=== PATIENT | female | born 1945 | race Two or more races ===

== ENCOUNTER 2017-05-28 16:35 | Observation (INO) | payer OTHER ==
--- NOTE | 2017-05-28 17:10 | PDOC ---
Rapid Medical Evaluation Time Seen by Provider: 05/28/17 17:10 Medical Evaluation: Allergies Allergy/AdvReac Type Severity Reaction Status Date / Time No Known Allergies Allergy Verified 12/16/15 18:55 05/28/17 17:10 I have performed a brief in-person evaluation of this patient. The patient presents with a chief complaint of: HENSLEY and body aches w/ subj fever Pertinent physical exam findings:Mildly tachy w/ elevated BP w/ temp of 99, chest/lungs clear otherwise I have ordered the following:labs/flu/CXR The patient will proceed to the ED for further evaluation. 05/28/17 17:14
[2017-05-28] MEDS ORDERED: ACETAMINOPHEN 500 MG TABLET (FP) PO ONE (17:17)
[2017-05-28] MEDS ORDERED: SODIUM CHLORIDE 0.9% 1000 ML INFUS.BAG IV ONE (17:17)
--- NOTE | 2017-05-28 17:19 | PDOC ---
History of Present Illness - History of Present Illness Initial Comments: 05/28/17 18:05 <IraiskayyNiki - Last Filed: 05/28/17 18:09> - History of Present Illness Initial Comments: 72 year old female with PMH of HTN and HLD presenting with fevers, chills, myalgias, and cough for the past 1.5 days. She does not admit to direct sick contacts but she states she comes across a lot of sick people on public transportation. States that her myalgias are primarily in her legs and arms and she hasn't taken anything for her fever or pain. Her cough is non-productive and does not wake her out of bed. She was not able to measure her fever at home. Does admit to decreased appetite but does not have fevers, chills, nausea vomiting, diarrhea, constipation, chest pain, SOB, wheezing, syncope, or other sick signs. 05/28/17 18:26 <Ita Munguia - Last Filed: 05/28/17 20:47> - General Chief Complaint: Weakness Stated Complaint: FATIGUE/PAIN Time Seen by Provider: 05/28/17 17:10 Past History <Niki Ferro - Last Filed: 05/28/17 18:09> - Past Medical History COPD: No HTN: Yes - Suicide/Smoking/Psychosocial Hx Smoking History: Never smoked Have you smoked in the past 12 months: No Information on smoking cessation initiated: No Hx Alcohol Use: No Drug/Substance Use Hx: No Substance Use Type: None <Ita Munguia - Last Filed: 05/28/17 20:47> - Past Medical History Allergies/Adverse Reactions: Allergies Allergy/AdvReac Type Severity Reaction Status Date / Time No Known Allergies Allergy Verified 05/28/17 17:15 Home Medications: Ambulatory Orders Carvedilol [Coreg -] 25 mg PO DAILY 12/16/15 Nifedipine ER [Procardia Xl -] 30 mg PO DAILY 12/16/15 Olmesartan/Hydrochlorothiazide [Benicar Hct 40-25 mg Tablet] 1 each PO DAILY 12/23 Rosuvastatin Calcium [Crestor] 5 mg PO DAILY 12/16/15 *Physical Exam - Vital Signs Last Vital Signs Temp Pulse Resp BP Pulse Ox 99.8 F H 81 23 153/128 97 05/28/17 17:12 05/28/17 17:12 05/28/17 17:12 05/28/17 17:12 05/28/17 17:12 <Niki Ferro - Last Filed: 05/28/17 18:09> - Vital Signs Last Vital Signs Temp Pulse Resp BP Pulse Ox 99.8 F H 81 23 153/128 97 05/28/17 17:12 05/28/17 17:12 05/28/17 17:12 05/28/17 17:12 05/28/17 17:12 <Ita Munguia - Last Filed: 05/28/17 20:47> ED Treatment Course - ADDITIONAL ORDERS Additional order review: 05/28/17 17:10 Influenza Types A,B Antigen (ILIANA) - Final Nasopharyngeal Swab - Final <Niki Ferro - Last Filed: 05/28/17 18:09> - LABORATORY CBC & Chemistry Diagram: 05/28/17 17:50 05/28/17 17:50 <Ita Munguia - Last Filed: 05/28/17 20:47> Medical Decision Making - Medical Decision Making 72 year old female with PMH of HTN and HLD presenting with fevers, chills, myalgias, and cough for the past 1.5 days. Influenza A was positive and other labs returned relatively normal but patient had EKG findings consistent with new onset Afib. Original call was placed to Dr. Foote but patent was actually a patient of Dr. Rangel's and he would like an overnight tele obs admission. Will defer AC to admitting team but patient has no contraindications from our standpoint and has a [id number] risk percentage of 3.3%. Patient admitted to [facility]. Given oseltamavir 75, 1G tylenol IV and admission order placed. 05/28/17 20:40 <Ita Munguia - Last Filed: 05/28/17 20:47> *DC/Admit/Observation/Transfer <Niki Ferro - Last Filed: 05/28/17 18:09> - Discharge Dispostion Admit: Yes <Ita Munguia - Last Filed: 05/28/17 20:47> Diagnosis at time of Disposition: New onset a-fib, Influenza A - Discharge Dispostion Condition at time of disposition: Improved
[2017-05-28] MEDS ORDERED: ACETAMINOPHEN INJECTION 100 ML IVPB ONE (17:56)
[2017-05-28 18:16] LABS: VENOUS PH 7.39 (7.32-7.42)
[2017-05-28 18:17] LABS: VENOUS PO2 41.7 mmHg (28-48)
[2017-05-28 18:27] LABS: BASO % 0.6 % (0-2.0); EOS % 0.1 % (0-4.5); HEMATOCRIT 30.3 % (32.4-45.2); LYMPH % 15.9 % (8-40); MCH 30.1 pg (25.7-33.7); MEAN CELL VOLUME 91.2 fl (80-96); MEAN PLT VOLUME 9.3 fl (7.5-11.1); MONO % 9.8 % (3.8-10.2); NEUT % 73.6 % (42.8-82.8); PLATELET COUNT 156 K/MM3 (134-434); RBC 3.33 M/mm3 (3.60-5.2); RDW 12.9 % (11.6-15.6); WHITE BLOOD COUNT 4.5 K/mm3 (4.0-10.0)
--- NOTE | 2017-05-28 18:47 | PDOC ---
Attending Attestation - HPI HPI: 05/28/17 18:47 The patient is a 72 year old female with past medical history of hypertension and hyperlipidemia who presents to the ED with complaints of flu like symptoms for the past day and half. The patient complains of fevers, chills, body aches, headache and nasal congestion. She reports not taking anything for her fever or symptoms. She denies receiving her flu vaccine this year. She denies any nausea , vomiting, diarrhea, shortness of breath, chest pain, or urinary symptoms. - Physicial Exam PE: 05/28/17 18:47 General Appearance: no acute distress, well nourished well developed, Head: Atraumatic, normocephalic Nose: Nares patent bilaterally;no nasal congestion Throat: Posterior oropharynx without erythema, mucous membranes moist, Neck: Supple;No Nuchal rigidity Cardiac: Regular rate and rhythm, no murmurs, no rubs, no gallops, Lungs: Clear to auscultation bilateral, good air movement bilaterally, Abdomen: Soft, nondistended, normal bowel sounds, nontender to palpation Extremities: Full range of motion to all extremities, no cyanosis, clubbing, or edema Skin: Warm and dry, no rashes or lesions, no petechiae - Medical Decision Making 05/28/17 18:49 Documentation prepared by Niki Ferro, acting as medical laboratory scientist for Lele Baptiste MD. <Niki Ferro - Last Filed: 05/28/17 18:47> - Resident Resident Name: Ita Munguia - ED Attending Attestation I have performed the following: I have examined & evaluated the patient, The case was reviewed & discussed with the resident, I agree w/resident's findings & plan, Exceptions are as noted - Medical Decision Making 05/28/17 20:26 Influenza positive. EKG demonstrates new onset A. fib rate controlled no ST elevations or T-wave inversions Case discussed with patient's primary doctor or body recommends admission with telemetry Full dose aspirin given Norm vasc 2 score = 3 We'll admit to medicine for further management. <Lele Baptiste - Last Filed: 05/28/17 20:26>
[2017-05-28 18:51] LABS: INR 1.19 (0.82-1.09); PROTHROMBIN TIME (PATIENT) 13.5 SEC (9.98-11.88)
[2017-05-28 18:54] LABS: ACTIVATED PTT 34.8 SECONDS (26.9-34.4)
[2017-05-28 18:54] LABS: ALBUMIN 3.5 g/dl (3.4-5.0); ANION GAP 6 (8-16); BILIRUBIN,TOTAL 0.7 mg/dL (0.2-1.0); BLOOD UREA NITROGEN 22 mg/dL (7-18); CALCIUM 8.3 mg/dL (8.5-10.1); CHLORIDE 103 mmol/L (98-107); CO2 27 mmol/L (21-32); CREATININE 0.8 mg/dL (0.55-1.02); GLUCOSE,RANDOM 117 mg/dL (74-106); POTASSIUM 3.8 mmol/L (3.5-5.1); SGOT/AST 80 U/L (15-37); SGPT/ALT 103 U/L (12-78); SODIUM 136 mmol/L (136-145); TOT PROT 7.3 g/dl (6.4-8.2)
[2017-05-28 18:55] LABS: ALK PHOS 68 U/L (45-117)
[2017-05-28] MEDS ORDERED: OSELTAMIVIR PHOSPHATE 75 MG CAPSULE PO ONE (19:02)
[2017-05-28] MEDS ORDERED: OSELTAMIVIR PHOSPHATE 75 MG CAPSULE ONE (19:27)
--- NOTE | 2017-05-28 19:43 | HP ---
Admitting History and Physical - Primary Care Physician PCP: Helder Rangel - Admission Chief Complaint: Flu-like symptoms History of Present Illness: This is a 72 y/o woman with a past medical history of ALS, HTN. Who presents to the ED with flu like symptoms and a productive cough-yellow phlegm x 2 days. Patient reports having generalized bodyaches, chills, with decreased appetite. Patient reports being vaccinated for Influenza this season. She denies recent sick contacts. Patient denies SOB, CP, palpitations, AP, N/V/D, constipation, dysuria. History Source: Patient, Medical Record Limitations to Obtaining History: No Limitations - Past Medical History Cardiovascular: Yes: HTN, Hyperlipdemia - Smoking History Smoking history: Never smoked Have you smoked in the past 12 months: No - Alcohol/Substance Use Hx Alcohol Use: No History of Substance Use: reports: None - Social History ADL: Independent History of Recent Travel: No Home Medications - Allergies Allergies/Adverse Reactions: Allergies Allergy/AdvReac Type Severity Reaction Status Date / Time No Known Allergies Allergy Verified 05/28/17 17:15 - Home Medications Home Medications: Ambulatory Orders Carvedilol [Coreg -] 25 mg PO DAILY 12/16/15 Nifedipine ER [Procardia Xl -] 30 mg PO DAILY 12/16/15 Olmesartan/Hydrochlorothiazide [Benicar Hct 40-25 mg Tablet] 1 each PO DAILY 12/23 Rosuvastatin Calcium [Crestor] 5 mg PO DAILY 12/16/15 Acetaminophen [Tylenol] 650 mg PO PRN 05/29/17 Family Disease History - Family Disease History Family History: Unable to Obtain Review of Systems - Review of Systems Constitutional: reports: Chills, Fever Eyes: reports: No Symptoms HENT: reports: Nasal Congestion Respiratory: reports: Cough Gastrointestinal: reports: No Symptoms Genitourinary: reports: No Symptoms Breasts: reports: No Symptoms Reported Integumentary: reports: No Symptoms Neurological: reports: No Symptoms Endocrine: reports: No Symptoms Hematology/Lymphatic: reports: No Symptoms Psychiatric: reports: No Symptoms Physical Examination Vital Signs: Vital Signs Temperature 99.8 F H 05/28/17 17:12 Pulse Rate 81 05/28/17 17:12 Respiratory Rate 23 05/28/17 17:12 Blood Pressure 153/128 05/28/17 17:12 O2 Sat by Pulse Oximetry (%) 97 05/28/17 17:12 Constitutional: Yes: Well Nourished Eyes: Yes: WNL, Conjunctiva Clear, EOM Intact, PERRL HENT: Yes: WNL, Atraumatic, Normocephalic, Nasal Congestion Neck: Yes: WNL, Supple, Trachea Midline Cardiovascular: Yes: Pulse Irregular, S1, S2 Respiratory: Yes: WNL, Rhonchi (scattered) Gastrointestinal: Yes: Normal Bowel Sounds, Soft, Abdomen, Obese ...Rectal Exam: Yes: Deferred Renal/: Yes: WNL Breast(s): Yes: WNL Musculoskeletal: Yes: Back Pain, Muscle Pain Extremities: Yes: WNL Edema: Yes Edema: LLE: Trace, RLE: Trace Peripheral Pulses WNL: Yes Integumentary: Yes: WNL Neurological: Yes: WNL, Alert, Oriented, Cran Nerves II-XII Intact ...Motor Strength: WNL Psychiatric: Yes: WNL, Alert, Oriented Labs: CBC, BMP 05/28/17 17:50 05/28/17 17:50 Laboratory Results - last 24 hr 05/28/17 05/28/17 05/28/17 17:50 17:50 18:05 WBC 4.5 RBC 3.33 L Hgb 10.0 L Hct 30.3 L MCV 91.2 MCH 30.1 MCHC 33.0 RDW 12.9 Plt Count 156 D MPV 9.3 Neutrophils % 73.6 Lymphocytes % 15.9 Monocytes % 9.8 Eosinophils % 0.1 Basophils % 0.6 PT with INR 13.50 H INR 1.19 H PTT (Actin FS) 34.8 H VBG pH POC VBG pCO2 POC VBG pO2 Mixed VBG HCO3 Sodium 136 Potassium 3.8 Chloride 103 Carbon Dioxide 27 Anion Gap 6 L BUN 22 H Creatinine 0.8 Creat Clearance w eGFR > 60 Random Glucose 117 H Lactic Acid Calcium 8.3 L Total Bilirubin 0.7 AST 80 H ALT 103 H Alkaline Phosphatase 68 Creatine Kinase Troponin I Total Protein 7.3 Albumin 3.5 05/28/17 05/28/17 05/28/17 18:05 18:05 18:05 WBC RBC Hgb Hct MCV MCH MCHC RDW Plt Count MPV Neutrophils % Lymphocytes % Monocytes % Eosinophils % Basophils % PT with INR INR PTT (Actin FS) VBG pH 7.39 POC VBG pCO2 45.0 POC VBG pO2 41.7 Mixed VBG HCO3 26.5 H Sodium Potassium Chloride Carbon Dioxide Anion Gap BUN Creatinine Creat Clearance w eGFR Random Glucose Lactic Acid 1.0 Calcium Total Bilirubin AST ALT Alkaline Phosphatase Creatine Kinase 136 Troponin I 0.02 Total Protein Albumin Imaging - Results Chest X-ray: Pending EKG: Image Reviewed (Afib 84bpm rate controlled QT/QTc 372/439) Problem List - Problems (1) Influenza A Code(s): J10.1 - FLU DUE TO OTH IDENT INFLUENZA VIRUS W OTH RESP MANIFEST (2) New onset a-fib Code(s): I48.91 - UNSPECIFIED ATRIAL FIBRILLATION (3) HTN (hypertension) Code(s): I10 - ESSENTIAL (PRIMARY) HYPERTENSION Qualifiers: Hypertension type: essential hypertension Qualified Code(s): I10 - Essential (primary) hypertension (4) HLD (hyperlipidemia) Code(s): E78.5 - HYPERLIPIDEMIA, UNSPECIFIED Qualifiers: Hyperlipidemia type: pure hypercholesterolemia Qualified Code(s): E78.00 - Pure hypercholesterolemia, unspecified; E78.0 - Pure hypercholesterolemia (5) DVT prophylaxis Code(s): AVE3610 - Assessment/Plan This is a 72 y/o woman with a PMHx of: HTN, HLD. Placed on Tele Observation for New Onset Afib, Influenza A for further evaluation of their emergent condition. Plan: Cardiology: 1. New Onset Afib- cardiac monitoring, [id number] Score 3, Appreciate Cardiology Consult, Serial Enzymes negx1, will trend x2, EKG- Afib rate controlled, patient is currently asymptomatic. Will start Eliquis 5mg BID 2. HTN- continue home meds, monitor BP, monitor renal function 3. HLD- continue home med, monitor LFTs ID: 1. Influenza A- Isolation Precautions- droplet, blood cultures-pending, urine culture pending, continue Tamiflu, monitor vitals, repeat CBC, BMP in am, Tylenol, continue supportive care F/E/N PO fluids as tolerated Replete lytes prn Low Na, Low Cholesterol Diet DVT Prophylaxis OOB SCDs Code Status: Full Code Dispo: Tele Observation Visit type - Emergency Visit Emergency Visit: Yes ED Registration Date: 05/28/17 Care time: The patient presented to the Emergency Department on the above date and was hospitalized for further evaluation of their emergent condition. - New Patient This patient is new to me today: Yes Date on this admission: 05/28/17 - Critical Care Critical Care patient: No
--- NOTE | 2017-05-28 21:19 | CON.CARD ---
Consult Consult Specialty:: Cardiology Referred by:: Emergency Dept Reason for Consultation:: Newly diagnosed atrial fibrillation - History of Present Illness Chief Complaint: Flu History of Present Illness: The patient is a 72 year old female with past medical history of hypertension and hyperlipidemia presented to the ED with complaints of flu like symptoms for the past day and half. The patient complains of fevers, chills, body aches, headache and nasal congestion. She reports not taking anything for her fever or symptoms. She denies receiving her flu vaccine this year. She denies shortness of breath, chest pain, palpitations, near or true syncope, orthopnea, PND. Found to be in rate-controlled afib, +Influenza A Ag. - History Source History Provided By: Patient Limitations to Obtaining History: No Limitations - Past Medical History Cardio/Vascular: Yes: HTN, Hyperlipdemia - Alcohol/Substance Use Hx Alcohol Use: No History of Substance Use: reports: None - Smoking History Smoking history: Never smoked Have you smoked in the past 12 months: No - Social History History of Recent Travel: No Home Medications - Allergies Allergies/Adverse Reactions: Allergies Allergy/AdvReac Type Severity Reaction Status Date / Time No Known Allergies Allergy Verified 05/28/17 17:15 - Home Medications Home Medications: Ambulatory Orders Carvedilol [Coreg -] 25 mg PO DAILY 12/16/15 Nifedipine ER [Procardia Xl -] 30 mg PO DAILY 12/16/15 Olmesartan/Hydrochlorothiazide [Benicar Hct 40-25 mg Tablet] 1 each PO DAILY 12/23 Rosuvastatin Calcium [Crestor] 5 mg PO DAILY 12/16/15 Acetaminophen [Tylenol] 650 mg PO PRN 05/29/17 Review of Systems - Review of Systems Constitutional: reports: Chills Musculoskeletal: reports: Muscle Pain Vital Signs: Vital Signs Temperature 98.9 F 05/28/17 19:54 Pulse Rate 81 05/28/17 19:54 Respiratory Rate 18 05/28/17 19:54 Blood Pressure 163/82 05/28/17 19:54 O2 Sat by Pulse Oximetry (%) 96 05/28/17 19:54 Constitutional: Yes: No Distress, Calm Neck: Yes: Supple Respiratory: Yes: Regular, Diminished Gastrointestinal: Yes: Normal Bowel Sounds, Soft, Abdomen, Obese Cardiovascular: Yes: Pulse Irregular JVD: No Carotid Bruit: No Heart Sounds: Yes: S1, S2 Murmur: Yes: Systolic Murmur, Grade 1 Edema: No - Other Data Labs, Other Data: CBC, BMP 05/28/17 17:50 05/28/17 17:50 INR, PTT INR 1.19 (0.82-1.09) H 05/28/17 18:05 Troponin, BNP 05/28/17 18:05 Troponin I 0.02 Troponin, BNP 05/28/17 18:05 Troponin I 0.02 Afib @ 84 Imaging - Results Chest X-ray: Report Reviewed (LLL ATX) Problem List - Problems (1) HLD (hyperlipidemia) Code(s): E78.5 - HYPERLIPIDEMIA, UNSPECIFIED Qualifiers: Hyperlipidemia type: pure hypercholesterolemia Qualified Code(s): E78.00 - Pure hypercholesterolemia, unspecified; E78.0 - Pure hypercholesterolemia (2) HTN (hypertension) Code(s): I10 - ESSENTIAL (PRIMARY) HYPERTENSION Qualifiers: Hypertension type: essential hypertension Qualified Code(s): I10 - Essential (primary) hypertension (3) Influenza A Code(s): J10.1 - FLU DUE TO OTH IDENT INFLUENZA VIRUS W OTH RESP MANIFEST (4) New onset a-fib Code(s): I48.91 - UNSPECIFIED ATRIAL FIBRILLATION Assessment/Plan 1. Newly diagnosed atrial fibrillation [id number] 2. Influenza A positive 3. Hyperlipidemia 4. HTN P:1. Continue carvedilol 25 bid. Benicar HCT 40/25 qd or equivalent and Procardia XL 30 qd 2. Agree with Eliquis 5 bid given elevated risk score 3. Check echo, TSH, consider DCCV once compliance with NOAC is confirmed 4. Tamiflu 5. Thank you for consultative opportunity
[2017-05-28] MEDS ORDERED: ONDANSETRON 4 MG/2 ML VIAL ONE (21:23)
[2017-05-28] MEDS ORDERED: ONDANSETRON 4 MG/2 ML VIAL IVPUSH ONE (21:23)
[2017-05-28] MEDS: APIXABAN 5 MG TABLET PO SCH (22:49)
[2017-05-28] MEDS: ROSUVASTATIN CA 5 MG TABLET (FP) PO SCH (22:49)
[2017-05-29] MEDS ORDERED: ACETAMINOPHEN 325 MG TABLET (FP) PO ONE (04:00)
[2017-05-29 06:09] VITALS: BMI 35.1
[2017-05-29 08:13] LABS: BASO % 0.4 % (0-2.0); EOS % 0.2 % (0-4.5); HEMATOCRIT 29.7 % (32.4-45.2); HEMOGLOBIN 9.6 GM/dL (10.7-15.3); LYMPH % 25.3 % (8-40); MCH 29.8 pg (25.7-33.7); MCHC 32.5 g/dl (32.0-36.0); MEAN CELL VOLUME 91.9 fl (80-96); MEAN PLT VOLUME 8.5 fl (7.5-11.1); MONO % 13.7 % (3.8-10.2); NEUT % 60.4 % (42.8-82.8); PLATELET COUNT 142 K/MM3 (134-434); RBC 3.23 M/mm3 (3.60-5.2); RDW 12.8 % (11.6-15.6); WHITE BLOOD COUNT 4.8 K/mm3 (4.0-10.0)
[2017-05-29 09:04] LABS: URINE APPEARANCE CLEAR; URINE BILIRUBIN NEGATIVE (NEGATIVE); URINE BLOOD 1+ (NEGATIVE); URINE COLOR LTYELLOW; URINE GLUCOSE (UA) NEGATIVE (NEGATIVE); URINE KETONE NEGATIVE (NEGATIVE); URINE LEUK ESTERASE NEGATIVE (NEGATIVE); URINE NITRITE NEGATIVE (NEGATIVE); URINE PROTEIN NEGATIVE (NEGATIVE); URINE UROBILINOGEN NEGATIVE mg/dL (0.2-1.0)
[2017-05-29] MEDS ORDERED: PT OWN MED DRAWER 7, Y5N ONE ×2 (09:08→19:58)
[2017-05-29 09:12] LABS: CHLORIDE 105 mmol/L (98-107); POTASSIUM 3.6 mmol/L (3.5-5.1); SODIUM 138 mmol/L (136-145)
[2017-05-29] MEDS: APIXABAN 5 MG TABLET PO SCH ×2 (09:14→22:09)
[2017-05-29] MEDS: NIFEdipine E.R. 30 MG TABLET (FP) PO SCH (09:14)
[2017-05-29] MEDS: OSELTAMIVIR PHOSPHATE 75 MG CAPSULE PO SCH ×2 (09:14→22:08)
[2017-05-29] MEDS: VALSARTAN 160 MG TABLET (UD) PO SCH (09:15)
[2017-05-29] MEDS: HYDROCHLOROTHIAZIDE 25 MG TABLET (FP) PO SCH (09:15)
[2017-05-29 09:23] LABS: URINE MUCUS RARE
[2017-05-29 09:28] LABS: ANION GAP 7 (8-16); BLOOD UREA NITROGEN 21 mg/dL (7-18); CALCIUM 8.2 mg/dL (8.5-10.1); CO2 26 mmol/L (21-32); CREATININE 0.8 mg/dL (0.55-1.02); GLUCOSE,RANDOM 82 mg/dL (74-106)
[2017-05-29] MEDS ORDERED: PATIENT'S OWN MEDICATION (NON-FORMULARY) (Olmesartan/Hydrochlorothiazide [Benicar Hct 40-2 PO SCH (10:00)
--- NOTE | 2017-05-29 17:34 | PN ---
Progress Note, Physician History of Present Illness: c/o myalgias, has not received carvedilol, remains in rapid afib. - Current Medication List Current Medications: Active Medications Apixaban (Eliquis -) 5 mg PO BID [facility] Last Admin: 05/29/17 09:14 Dose: 5 mg Hydrochlorothiazide (Hctz -) 25 mg PO DAILY [facility] Last Admin: 05/29/17 09:15 Dose: 25 mg Nifedipine (Procardia Xl -) 30 mg PO DAILY [facility] Last Admin: 05/29/17 09:14 Dose: 30 mg Oseltamivir Phosphate (Tamiflu -) 75 mg PO BID [facility] Stop: 06/03/17 09:59 Last Admin: 05/29/17 09:14 Dose: 75 mg Rosuvastatin Calcium (Crestor -) 5 mg PO [facility] Last Admin: 05/28/17 22:49 Dose: 5 mg Valsartan (Diovan -) 320 mg PO DAILY [facility] Last Admin: 05/29/17 09:15 Dose: 320 mg - Objective Vital Signs: Vital Signs Temperature 99.5 F 05/29/17 14:24 Pulse Rate 97 H 05/29/17 14:24 Respiratory Rate 18 05/29/17 14:24 Blood Pressure 130/80 05/29/17 14:24 O2 Sat by Pulse Oximetry (%) 93 L 05/29/17 11:00 Constitutional: Yes: No Distress, Calm Neck: Yes: Supple Cardiovascular: Yes: Pulse Irregular Respiratory: Yes: Regular, Diminished, On Nasal O2 Gastrointestinal: Yes: Normal Bowel Sounds, Soft, Abdomen, Obese Edema: No Labs: CBC, BMP 05/29/17 08:00 05/29/17 08:00 INR, PTT INR 1.19 (0.82-1.09) H 05/28/17 18:05 - ....Imaging EKG: Report Reviewed (Afib @ 84 Tele: Rapid afib 120s) Problem List - Problems (1) HLD (hyperlipidemia) Code(s): E78.5 - HYPERLIPIDEMIA, UNSPECIFIED Qualifiers: Hyperlipidemia type: pure hypercholesterolemia Qualified Code(s): E78.00 - Pure hypercholesterolemia, unspecified; E78.0 - Pure hypercholesterolemia (2) HTN (hypertension) Code(s): I10 - ESSENTIAL (PRIMARY) HYPERTENSION Qualifiers: Hypertension type: essential hypertension Qualified Code(s): I10 - Essential (primary) hypertension (3) Influenza A Code(s): J10.1 - FLU DUE TO OTH IDENT INFLUENZA VIRUS W OTH RESP MANIFEST (4) New onset a-fib Code(s): I48.91 - UNSPECIFIED ATRIAL FIBRILLATION Assessment/Plan 1. Newly diagnosed atrial fibrillation with RVR [id number] 2. Influenza A positive 3. Hyperlipidemia 4. HTN P:1. Resume carvedilol 6.25 bid and uptitrate as tolerated. Continue Diovan HCT 320/25 qd, Crestor 5 qd and Procardia XL 30 qd 2. Continue Eliquis 5 bid given elevated risk score 3. Check echo, ruled out for [place], consider DCCV once compliance with NOAC is confirmed 4. Tamiflu, start Tylenol as needed
[2017-05-29] MEDS: ACETAMINOPHEN 325 MG TABLET (FP) PO PRN (18:16)
[2017-05-29] MEDS: CARVEDILOL 6.25 MG TABLET (FP) PO SCH ×2 (18:17→22:09)
[2017-05-29] MEDS: ROSUVASTATIN CA 5 MG TABLET (FP) PO SCH (22:09)
[2017-05-30] MEDS ORDERED: SODIUM CHLORIDE 1,000 ML IV SCH (00:15)
--- NOTE | 2017-05-30 00:19 | PN ---
Progress Note, Physician Chief Complaint: Influenza New Onset Afib - Current Medication List Current Medications: Active Medications Acetaminophen (Tylenol -) 650 mg PO Q4H PRN PRN Reason: PAIN Last Admin: 05/29/17 18:16 Dose: 650 mg Apixaban (Eliquis -) 5 mg PO BID [facility] Last Admin: 05/29/17 22:09 Dose: 5 mg Carvedilol (Coreg -) 6.25 mg PO BID [facility] Last Admin: 05/29/17 22:09 Dose: Not Given Hydrochlorothiazide (Hctz -) 25 mg PO DAILY [facility] Last Admin: 05/29/17 09:15 Dose: 25 mg Sodium Chloride (Normal Saline -) 1,000 mls @ 75 mls/hr IV ASDIR [facility] Nifedipine (Procardia Xl -) 30 mg PO DAILY [facility] Last Admin: 05/29/17 09:14 Dose: 30 mg Oseltamivir Phosphate (Tamiflu -) 75 mg PO BID [facility] Stop: 06/03/17 09:59 Last Admin: 05/29/17 22:08 Dose: 75 mg Rosuvastatin Calcium (Crestor -) 5 mg PO HS [facility] Last Admin: 05/29/17 22:09 Dose: 5 mg Valsartan (Diovan -) 320 mg PO DAILY [facility] Last Admin: 05/29/17 09:15 Dose: 320 mg - Objective Vital Signs: Vital Signs Temperature 100.7 F H 05/29/17 17:45 Pulse Rate 107 H 05/29/17 17:45 Respiratory Rate 18 05/29/17 17:45 Blood Pressure 145/75 05/29/17 17:45 O2 Sat by Pulse Oximetry (%) 93 L 05/29/17 11:00 Constitutional: Yes: Well Nourished, Calm, Mild Distress Cardiovascular: Yes: Pulse Irregular Respiratory: Yes: Regular, Cough Gastrointestinal: Yes: Normal Bowel Sounds, Soft Musculoskeletal: Yes: Muscle Weakness Extremities: Yes: WNL Neurological: Yes: Alert, Oriented Psychiatric: Yes: Alert, Oriented Labs: CBC, BMP 05/29/17 08:00 05/29/17 08:00 INR, PTT INR 1.19 (0.82-1.09) H 05/28/17 18:05 Problem List - Problems (1) Influenza A Assessment/Plan: -IVF -Tamiflu -isolation precautions Code(s): J10.1 - FLU DUE TO OTH IDENT INFLUENZA VIRUS W OTH RESP MANIFEST (2) New onset a-fib Assessment/Plan: -Influenza triggered? -on AC -seen by Cardiology -tele -echo on wednesday Code(s): I48.91 - UNSPECIFIED ATRIAL FIBRILLATION Assessment/Plan see problem list
[2017-05-30] MEDS: ACETAMINOPHEN 325 MG TABLET (FP) PO PRN (05:24)
[2017-05-30] MEDS ORDERED: PT OWN MED DRAWER 7, Y5N ONE ×2 (10:33→17:51)
[2017-05-30] MEDS: HYDROCHLOROTHIAZIDE 25 MG TABLET (FP) PO SCH (10:36)
[2017-05-30] MEDS: OSELTAMIVIR PHOSPHATE 75 MG CAPSULE PO SCH ×2 (10:36→17:58)
[2017-05-30] MEDS: NIFEdipine E.R. 30 MG TABLET (FP) PO SCH (10:36)
[2017-05-30] MEDS: VALSARTAN 160 MG TABLET (UD) PO SCH (10:36)
[2017-05-30] MEDS: APIXABAN 5 MG TABLET PO SCH ×2 (10:36→17:59)
[2017-05-30] MEDS: CARVEDILOL 6.25 MG TABLET (FP) PO SCH (10:36)
--- NOTE | 2017-05-30 12:21 | PN ---
Progress Note, Physician History of Present Illness: Myalgias and cough improving, remains in rapid afib. - Current Medication List Current Medications: Active Medications Acetaminophen (Tylenol -) 650 mg PO Q4H PRN PRN Reason: PAIN Last Admin: 05/30/17 05:24 Dose: 650 mg Apixaban (Eliquis -) 5 mg PO BID [facility] Last Admin: 05/30/17 10:36 Dose: 5 mg Carvedilol (Coreg -) 6.25 mg PO BID [facility] Last Admin: 05/30/17 10:36 Dose: 6.25 mg Hydrochlorothiazide (Hctz -) 25 mg PO DAILY [facility] Last Admin: 05/30/17 10:36 Dose: 25 mg Sodium Chloride (Normal Saline -) 1,000 mls @ 75 mls/hr IV ASDIR [facility] Last Admin: 05/30/17 05:16 Dose: 75 mls/hr Nifedipine (Procardia Xl -) 30 mg PO DAILY [facility] Last Admin: 05/30/17 10:36 Dose: 30 mg Oseltamivir Phosphate (Tamiflu -) 75 mg PO BID [facility] Stop: 06/03/17 09:59 Last Admin: 05/30/17 10:36 Dose: 75 mg Rosuvastatin Calcium (Crestor -) 5 mg PO HS [facility] Last Admin: 05/29/17 22:09 Dose: 5 mg Valsartan (Diovan -) 320 mg PO DAILY [facility] Last Admin: 05/30/17 10:36 Dose: 320 mg - Objective Vital Signs: Vital Signs Temperature 98.4 F 05/30/17 09:23 Pulse Rate 98 H 05/30/17 09:23 Respiratory Rate 20 05/30/17 09:23 Blood Pressure 125/78 05/30/17 09:23 O2 Sat by Pulse Oximetry (%) 95 05/30/17 03:00 Constitutional: Yes: No Distress, Calm Neck: Yes: Supple Cardiovascular: Yes: Tachycardia, Pulse Irregular Respiratory: Yes: Regular, Diminished, On Nasal O2 Gastrointestinal: Yes: Normal Bowel Sounds, Soft, Abdomen, Obese Edema: No Labs: CBC, BMP 05/29/17 08:00 05/29/17 08:00 INR, PTT INR 1.19 (0.82-1.09) H 05/28/17 18:05 - ....Imaging EKG: Report Reviewed (Tele: Rapid afib) Problem List - Problems (1) HLD (hyperlipidemia) Code(s): E78.5 - HYPERLIPIDEMIA, UNSPECIFIED Qualifiers: Hyperlipidemia type: pure hypercholesterolemia Qualified Code(s): E78.00 - Pure hypercholesterolemia, unspecified; E78.0 - Pure hypercholesterolemia (2) HTN (hypertension) Code(s): I10 - ESSENTIAL (PRIMARY) HYPERTENSION Qualifiers: Hypertension type: essential hypertension Qualified Code(s): I10 - Essential (primary) hypertension (3) Influenza A Code(s): J10.1 - FLU DUE TO OTH IDENT INFLUENZA VIRUS W OTH RESP MANIFEST (4) New onset a-fib Code(s): I48.91 - UNSPECIFIED ATRIAL FIBRILLATION Assessment/Plan 1. Newly diagnosed atrial fibrillation with RVR [id number] 2. Influenza A positive 3. Hyperlipidemia 4. HTN P:1. Increase carvedilol 12.5 bid and uptitrate as tolerated. Continue Diovan HCT 320/25 qd, Crestor 5 qd and Procardia XL 30 qd 2. Continue Eliquis 5 bid given elevated risk score 3. Check echo, ruled out for MD, consider DCCV once compliance with NOAC is confirmed 4. Tamiflu, start Tylenol as needed
[2017-05-30] MEDS ORDERED: CARVEDILOL 6.25 MG TABLET (FP) PO SCH (12:29)
[2017-05-30] MEDS ORDERED: CARVEDILOL 6.25 MG TABLET (FP) PO ONE (12:29)
[2017-05-30] MEDS ORDERED: guaiFENesin 200 MG/10 ML 10 ML UNIT-DOSE CUPS PO PRN (13:34)
--- NOTE | 2017-05-30 13:36 | CON.PULM ---
Consult Consult Specialty:: PULM/CCM Referred by:: JUNE Reason for Consultation:: SOB - History of Present Illness Chief Complaint: SOB History of Present Illness: 72 F, hypertension and hyperlipidemia. Life long nonsmoker. Did not receive influenza vaccine this year. Admitted via the ER due to fevers, chills, body aches, headache, mild FISH, and nasal congestion for a few days duration. No ABX as an outpatient. No CP, night sweats, or hemoptysis. No recent travel history or sick contacts. CXR: Poor inspiration / central vascular crowding and mild basilar atelectasis. Found to be Influenza (+) and in new onset rate controlled AFib. - History Source History Provided By: Patient Limitations to Obtaining History: No Limitations - Past Medical History Cardio/Vascular: Yes: HTN, Hyperlipdemia ...: No - Alcohol/Substance Use Hx Alcohol Use: No History of Substance Use: reports: None - Smoking History Smoking history: Never smoked Have you smoked in the past 12 months: No - Social History ADL: Independent History of Recent Travel: No Home Medications - Allergies Allergies/Adverse Reactions: Allergies Allergy/AdvReac Type Severity Reaction Status Date / Time No Known Allergies Allergy Verified 05/28/17 17:15 - Home Medications Home Medications: Ambulatory Orders Carvedilol [Coreg -] 25 mg PO DAILY 12/16/15 Nifedipine ER [Procardia Xl -] 30 mg PO DAILY 12/16/15 Olmesartan/Hydrochlorothiazide [Benicar Hct 40-25 mg Tablet] 1 each PO DAILY 12/23 Rosuvastatin Calcium [Crestor] 5 mg PO DAILY 12/16/15 Acetaminophen [Tylenol] 650 mg PO PRN 05/29/17 Review of Systems - Review of Systems Constitutional: reports: Chills, Fever, Lethargy, Malaise, Weakness. denies: Night Sweats, Unintentional Wgt. Loss Eyes: reports: No Symptoms HENT: reports: No Symptoms Neck: reports: No Symptoms, Tenderness Cardiovascular: reports: Shortness of Breath. denies: Chest Pain, Edema, Palpitations Respiratory: reports: Cough, SOB, SOB on Exertion. denies: Hemoptysis, Orthopnea, Wheezing Gastrointestinal: reports: No Symptoms Genitourinary: reports: No Symptoms Breasts: reports: No Symptoms Reported Musculoskeletal: reports: No Symptoms Integumentary: reports: No Symptoms Neurological: reports: No Symptoms Endocrine: reports: No Symptoms Hematology/Lymphatic: reports: No Symptoms Psychiatric: reports: No Symptoms Physical Exam Vital Sings: Vital Signs Temperature 98.4 F 05/30/17 09:23 Pulse Rate 98 H 05/30/17 09:23 Respiratory Rate 20 05/30/17 11:00 Blood Pressure 125/78 05/30/17 09:23 O2 Sat by Pulse Oximetry (%) 95 05/30/17 11:00 Constitutional: Yes: No Distress, Calm, Obese Eyes: Yes: Conjunctiva Clear, EOM Intact HENT: Yes: Atraumatic, Normocephalic Neck: Yes: Supple, Trachea Midline Cardiovascular: Yes: Pulse Irregular. No: JVD, Gallop, Murmur Respiratory: Yes: Cough, Diminished, On Nasal O2, Rhonchi. No: Accessory Muscle Use, Rales, SOB, SOB on Exertion, Stridor, Tachypnea, Wheezes ...Inspection: Yes: WNL ...Clubbing: No Gastrointestinal: Yes: Normal Bowel Sounds, Soft, Abdomen, Obese Renal/: Yes: WNL Musculoskeletal: Yes: WNL Extremities: Yes: WNL Edema: No Peripheral Pulses WNL: Yes Integumentary: Yes: WNL Neurological: Yes: WNL, Alert, Oriented ...Motor Strength: WNL Psychiatric: Yes: WNL, Alert, Oriented Labs: CBC, BMP 05/29/17 08:00 05/29/17 08:00 Imaging - Results Chest X-ray: Report Reviewed, Image Reviewed Problem List - Problems (1) HLD (hyperlipidemia) Code(s): E78.5 - HYPERLIPIDEMIA, UNSPECIFIED Qualifiers: Hyperlipidemia type: pure hypercholesterolemia Qualified Code(s): E78.00 - Pure hypercholesterolemia, unspecified; E78.0 - Pure hypercholesterolemia (2) HTN (hypertension) Code(s): I10 - ESSENTIAL (PRIMARY) HYPERTENSION Qualifiers: Hypertension type: essential hypertension Qualified Code(s): I10 - Essential (primary) hypertension (3) Influenza A Code(s): J10.1 - FLU DUE TO OTH IDENT INFLUENZA VIRUS W OTH RESP MANIFEST (4) New onset a-fib Code(s): I48.91 - UNSPECIFIED ATRIAL FIBRILLATION Assessment/Plan Tamiflu 75mg BID x 5 days O2 as needed Robitussin PRN Repeat CXR in AM : possible mild pulmonary vascular congestion Monitor off ABX Monitor off IVF for now Cardiac workup per Cardiology Will follow Thank you. Dr Brito
[2017-05-30 14:30] VITALS: PULSE 97
--- NOTE | 2017-05-30 17:31 | DS ---
Physical Examination Vital Signs: Vital Signs Temperature 98.2 F 05/30/17 14:29 Pulse Rate 97 H 05/30/17 14:29 Respiratory Rate 20 05/30/17 14:29 Blood Pressure 138/69 05/30/17 14:29 O2 Sat by Pulse Oximetry (%) 95 05/30/17 11:00 Constitutional: Yes: Well Nourished, No Distress, Calm Cardiovascular: Yes: Pulse Irregular Respiratory: Yes: Regular Gastrointestinal: Yes: Normal Bowel Sounds Musculoskeletal: Yes: WNL Extremities: Yes: WNL Edema: No Peripheral Pulses WNL: Yes Neurological: Yes: Alert, Oriented Psychiatric: Yes: Alert, Oriented Labs: CBC, BMP 05/29/17 08:00 05/29/17 08:00 Discharge Summary Reason For Visit: INFLUE DUE TO INFLUENZA VIRUS, TYPE A, HUMAN Current Active Problems DVT prophylaxis (Acute) HLD (hyperlipidemia) (Acute) HTN (hypertension) (Acute) Influenza A (Acute) New onset a-fib (Acute) Hospital Course: 72 year old female with PMH of HTN and HLD presenting with fevers, chills, myalgias, and cough for the past 1.5 days. She does not admit to direct sick contacts but she states she comes across a lot of sick people on public transportation. States that her myalgias are primarily in her legs and arms and she hasn't taken anything for her fever or pain. Her cough is non-productive and does not wake her out of bed. She was not able to measure her fever at home. Does admit to decreased appetite but does not have fevers, chills, nausea vomiting, diarrhea, constipation, chest pain, SOB, wheezing, syncope, or other sick signs. Condition: Stable - Instructions Diet, Activity, Other Instructions: -Follow up with PCP Dr Rangel within 2 weeks -Follow up with Dr Hidalgo within 2 weeks Referrals: Helder Rangel MD [Primary Care Provider] - Gume Hidalgo MD [Staff Physician] - Disposition: HOME - Home Medications Comprehensive Discharge Medication List: Ambulatory Orders Nifedipine ER [Procardia XL -] 30 mg PO DAILY 12/16/15 Rosuvastatin Calcium [Crestor] 5 mg PO DAILY 12/16/15 Acetaminophen [Tylenol] 650 mg PO PRN 05/29/17 Apixaban [Eliquis -] 5 mg PO BID #60 tablet 05/30/17 Carvedilol [Coreg -] 12.5 mg PO BID #60 tablet 05/30/17 Guaifenesin [Robitussin -] 10 ml PO Q4H PRN #600 ml 05/30/17 Hydrochlorothiazide [Hctz -] 25 mg PO DAILY #30 tablet 05/30/17 Oseltamivir Phosphate [Tamiflu -] 75 mg PO BID #6 capsule 05/30/17 Valsartan [Diovan] 320 mg PO DAILY #60 tablet 05/30/17
[2017-05-30] MEDS ORDERED: APIXABAN 5 MG TABLET PO ONE (17:48)
[2017-05-30] MEDS ORDERED: OSELTAMIVIR PHOSPHATE 75 MG CAPSULE PO ONE (17:49)
[2017-05-30] MEDS: ROSUVASTATIN CA 5 MG TABLET (FP) PO SCH (17:59)
[2017-05-30 18:42] VITALS: BP 138/76; TEMP 97.5
--- NOTE | 2017-05-31 21:52 | EKG ---
Test Reason : Blood Pressure : / mmHG Vent. Rate : 084 BPM Atrial Rate : 081 BPM P-R Int : 000 ms QRS Dur : 086 ms QT Int : 372 ms P-R-T Axes : 000 006 024 degrees QTc Int : 439 ms ATRIAL FIBRILLATION ABNORMAL ECG WHEN COMPARED WITH ECG OF 16-DEC-2006 13:38, ATRIAL FIBRILLATION HAS REPLACED SINUS RHYTHM Confirmed by BAR TORRES MD ([id number]) on 05/31/2017 9:51:48 PM Referred By: Confirmed By:BAR TORRES MD
== END 2017-05-30 19:00 | disposition home or self-care (01) ==
LOC: SUPCPDRO 16:35 → JER 16:35 → JERBED 19:31 → J4S 05-29 02:43
PROVIDERS: ADMIT Family Medicine; ATTEND Family Medicine
PROC: 3E033GC Introduction of Other Therapeutic Substance into Peripheral Vein, Percutaneous Approach (ICD-10-PCS; principal; 2017-05-28)
PROC: 3E0337Z Introduction of Electrolytic and Water Balance Substance into Peripheral Vein, Percutaneous Approach (ICD-10-PCS; 2017-05-28)
DX: J09.X2 Influenza due to identified novel influenza A virus with other respiratory manifestations (principal); I48.91 Unspecified atrial fibrillation; I10 Essential (primary) hypertension; E78.5 Hyperlipidemia, unspecified; Z79.01 Long term (current) use of anticoagulants
CPT/HCPCS: 36415; 71045-TC; 80048; 80053; 81003; 81015; 82550; 82803; 83605; 84443; 84484; 85025; 85610; 85730; 86850; 86870; 86900; 86901; 86902; 87040; 87086; 87804; 93005; 93010; 96374; 99285-25; G0378